=== PATIENT | male | born 1955 | race African-American/Black ===

== ENCOUNTER → 2018-10-28 | Day surgery (SDC) | payer BC ==
[~2018-10-28] MED LIST: ATOR20TA58 PO; COLE1TAB PO; COLE1TAB2 PO; ESOM40CA47 PO; FENO145T PO; IV RINGERS,LACTATED 1000ML 1,000 ML IV SCH; LIDOCAINE 1% PF 2 ML VIAL. ID PRN; LIDOCAINE 2% PF 5 ML VIAL. ONE; LIPA1CAP8 PO; MIDAZOLAM HCL/PF 2 MG/2 ML VIAL. IV PRN; OMEG1CAP2 PO; PROPOFOL 40 ML IV ONE; TRAZ-118 PO; fentaNYL PF VIAL 100 MCG/2 ML VIAL IV PRN
--- NOTE | 2018-10-28 13:55 | PDOC1 ---
History and Physical Date of Admission Date of Admission DATE: 10/28/18 TIME: 13:48 Source Source: Chart review, Patient History of Present Illness History of Present Illness 63 y/o male with unexplained weight loss. Recently non-diagnostic CT. H/o reflux, H.pylori and gastric metaplasia; last EGD 2016. Never able to complete treatment for H.pylori. No PUD, GB or pancreatic history. H/o NAFLD. FH of colon polyps; last colonoscopy 2011. Past Medical History Cardiovascular: Hyperlipidemia Musculoskeletal: Osteoarthritis Past Surgical History Past Surgical History: No pertinent history Family History Family History: Family History Unknown Social History Smoke: No ALCOHOL: none Drugs: None Current Medications Current Medications Current Medications Midazolam HCl (Versed) 2 mg PRN 1X PRN IV PRIOR TO PROCEDURE; Start 10/28/18 at 13:30; Stop 10/29/18 at 13:29 Fentanyl Citrate (Fentanyl 2ml Vial) 25 mcg PRN Q5MIN PRN IV X 2 DOSES FOR PAIN ; Start 10/28/18 at 13:30; Stop 10/29/18 at 13:29 Fentanyl Citrate (Fentanyl 2ml Vial) 50 mcg PRN Q5MIN PRN IV X 2 DOSES FOR PAIN ; Start 10/28/18 at 13:30; Stop 10/29/18 at 13:29 Ringer's Solution 1,000 ml @ 125 mls/hr Q8H IV ; Start 10/28/18 at 13:19; Stop 10/29/18 at 01:18 Lidocaine HCl (Xylocaine-Mpf 1% 2ml Vial) 2 ml 1X PRN PRN ID IV START; Start at 13:30; Stop 10/29/18 at 13:29 Propofol 40 ml @ As Directed STK-MED ONCE IV ; Start 10/28/18 at 13:41; Stop 10/28 at 13:42; Status DC Lidocaine HCl (Lidocaine Pf 2% Vial) 5 ml STK-MED ONCE .ROUTE ; Start 10/28/18 at 13:41; Stop 10/28/18 at 13:42; Status DC Active Scripts Active Reported Creon Dr 36,000 Units Capsule (Lipase/Protease/Amylase) 1 Each Capsule.dr 1 Each PO WITH MEALS Colestipol Hcl 1 Gm Tablet 2 Gm PO DAILY Atorvastatin Calcium 20 Mg Tablet 20 Mg PO HS Lovaza (Ehrenberg-3 Acid Ethyl Esters) 1 Gm Capsule 4 Gm PO DAILY Tricor (Fenofibrate Nanocrystallized) 145 Mg Tablet 145 Mg PO DAILY Trazodone Hcl 50 Mg Tablet 50 Mg PO HS Allergies Allergies: Coded Allergies: No Known Drug Allergies (Unverified , 10/28/18) ROS Review of System Otherwise negative. Physical Exam General: Alert, Oriented X3, Cooperative, No acute distress Lungs: Clear to auscultation Heart: S1S2, RRR, no gallops, no murmurs Abdomen: Normal bowel sounds, Soft, No tenderness, No hepatosplenomegaly, No masses Extremities: No cyanosis, No edema Skin: No significant lesion Neuro: Normal gait, Normal speech, Strength at 5/5 X4 ext, Normal tone, Sensation intact, Cranial nerves 3-12 NL, Reflexes 2+ Psych/Mental Status: Mental status NL, Mood NL Vitals Vitals See nursing records. VTE Prophylaxis Ordered VTE Prophylaxis Devices: No VTE Pharmacological Prophylaxi: No Assessment/Plan Assessment/Plan IMP: Unexplained weight loss. H/o gastric intestinal metaplasia; higher risk for gastric cancer. FH colon polyps, due. REC: Colonoscopy and EGD. HUMZA SANDHU MD Oct 28, 2018 13:55
--- NOTE | 2018-10-28 14:28 | PDOC4 ---
PROCEDURE Procedure EGD/colonoscopy Indications: unintentional weight loss, h/o gastric intestinal metaplasia, family history of polyps(due). Meds: per anesthesia Findings: E--Healed reflux at 40cm. G--Intestinal metaplasia throughout body; random biopsies. No obvious tumor, etc. D--Normal to second portion; biopsies re: malabsorption. CELESTE--normal -Colonoscope advance to TI. Fair prep. Mucosa normal throughout. Several diverticula cecum and proximal ascending. IH's on retroflex. Otherwise normal. Germán. well. IMP: GERD, healed Gastric intestinal metaplasia. Diverticulosis Internal hemorrhoids] --No overt cause for the weight loss seen. REC: Resume home medications and diet. Await path. If no answer from pathology, evaluate small bowel. Consider CTA. F/u in office in 2 weeks. HUMZA SANDHU MD Oct 28, 2018 14:28
[2018-10-28 14:52] VITALS: BP 110/65
--- NOTE | 2018-10-29 15:06 | PATHOLOGY ---
[facility] Accession Number: [id number] . 01 Material submitted: . PART A: DUODENAL BIOPSY PART B: RANDOM GASTRIC BODY BIOPSY . 01 Clinical history: . Weight loss, diarrhea . 02 Diagnosis: A. Small intestine mucosa, duodenal biopsy: - No significant pathologic abnormalities. . B. Gastric body mucosa, random biopsies: - Active chronic gastritis, moderate, with numerous Helicobacter organisms identified. (JPM:nafisa; 10/29/2018) QMS/10/29/2018 . 02 Comment: Sections of the duodenal biopsy reveal segments of small intestine mucosa. Where best oriented, the mucosal villi show no sprue-like changes or significant inflammatory changes. . Sections of the random gastric body biopsy show moderate active chronic inflammation. A properly controlled immunoperoxidase stain for Helicobacter reveals numerous Helicobacter organisms. (JPM:nafisa; 10/29/2018) . . Special stain performed: Immunoperoxidase stain for Helicobacter on B1. . 02 Electronically signed: . Ronny Leavitt MD, Pathologist NPI- [id number] . 01 Gross description: . A. Received in formalin labeled "Kathleen Cortezs, duodenal BX," are 3 segments of chacon soft tissue measuring 1.2 x 0.8 x 0.3 cm in aggregate dimensions and ranging from 0.3 to 0.5 cm in maximum dimension. The specimen is submitted entirely in cassette A1. . B. Received in formalin labeled "Stone, Adithya, random gastric body BX," are 4 segments of chacon soft tissue measuring 1.3 x 0.9 x 0.2 cm in aggregate dimensions and ranging from 0.3 to 0.5 cm in maximum dimension. The specimen is submitted entirely in cassette B1. (TSD; 10/28/2018) TOB/TOB . 02 Pathologist provided ICD-10: K29.50 . 02 CPT . 276283, 430319, [id number] Specimen Comment: A courtesy copy of this report has been sent to Specimen Comment: [phone], . Specimen Comment: Report sent to / DR RIVAS Performed at: 01 [facility] [address], [place] [id number] MD Mark Acosta MD Phone: [phone] Performed at: 02 [facility] [place] [address] [place], [place] [id number] MD Ronny Leavitt MD Phone: [phone]
== END | disposition home or self-care (01) ==
LOC: SURG 13:18
PROVIDERS: ATTEND Internal Medicine Gastroenterology
DX: K57.30 Diverticulosis of large intestine without perforation or abscess without bleeding (principal); K21.0 Gastro-esophageal reflux disease with esophagitis; K29.50 Unspecified chronic gastritis without bleeding; K64.0 First degree hemorrhoids; Z83.71 Family history of colonic polyps; Z79.899 Other long term (current) drug therapy; M19.90 Unspecified osteoarthritis, unspecified site; Z98.890 Other specified postprocedural states; E78.00 Pure hypercholesterolemia, unspecified
CPT/HCPCS: 43239; 45378; 88305; 88342; J2001; J2704